=== PATIENT | male | born 1985 | race Caucasian/White ===

== ENCOUNTER 2018-10-23 20:15 | Emergency (ER) | payer MEDICAID ==
[~2018-10-23] VITALS: Ht 172.7 cm; Wt 94.8 kg
--- NOTE | 2018-10-23 20:28 | NUR ---
Patient ambulated with stable gait. AAOX4, speech clear, speaks in complete sentences. No neuro deficits noted. Patient came in with c/o rt sided head pain x 8-10 days. Patient reported taking advil and tylenol intermittently for pain relief. Pain 9/10. Respiratory even and unlabored, no sob, no cough. No cardiovascular distress noted. No GI/ distress. Patient in bed at lowest position, sr upx2, call light within reach. Fall precautions implemented per protocol.
[2018-10-23] MEDS ORDERED: KETOROLAC TROMETHAMINE 30 MG INJ ONE (20:38)
[2018-10-23] MEDS ORDERED: KETOROLAC TROMETHAMINE 30 MG INJ IM ONE (20:45)
[2018-10-23] MEDS ORDERED: TRAMADOL HCL 50 MG TABLET PO ONE (21:30)
[2018-10-23] MEDS ORDERED: TRAMADOL HCL 50 MG TABLET ONE (21:36)
--- NOTE | 2018-10-23 21:43 | NUR ---
Patient discharged to home in stable conditon. Written and verbal after care instructions given. Patient verbalizes understanding of instructions. Patient ambulated with stable gait. Instructed not to drive.
[2018-10-23 21:44] VITALS: BP 140/90
== END 2018-10-23 21:44 | disposition home or self-care (01) ==
LOC: ER 20:15
DX: R51 Headache (principal); F17.290 Nicotine dependence, other tobacco product, uncomplicated; Z88.0 Allergy status to penicillin
CPT/HCPCS: 96372; 99283; 99406; J1885; A4663

== ENCOUNTER 2022-02-18 14:34 | Emergency (ER) | payer MEDICAID ==
[~2022-02-18] VITALS: Ht 172.7 cm; Wt 97.5 kg
[2022-02-18 15:53] LABS: *BILIRUBIN,URIN NEGATIVE (NEGATIVE); *BLOOD, URINE NEGATIVE (NEGATIVE); *CLARITY,URINE CLEAR (CLEAR); *COLOR,URINE YELLOW (YELLOW); *KETONES,URINE NEGATIVE (NEGATIVE); *UROBILINOGEN,URINE 0.2 E.U./dl (NORMAL); LEUKOCYTE ESTERASE ,URINE NEGATIVE (NEGATIVE); NITRITE, URINE NEGATIVE (NEGATIVE); UGLUCOSE NEGATIVE (NEGATIVE)
[2022-02-18] MEDS ORDERED: IBUP-1955 PO ×2 (16:23→16:25)
[2022-02-18] MEDS ORDERED: HYDR-4209 PO ×2 (16:23→16:25)
[2022-02-18] MEDS ORDERED: HYDROCODONE/APAP 5-325MG TABLET PO ONE (16:30)
[2022-02-18] MEDS ORDERED: HYDROCODONE/APAP 5-325MG TABLET ONE (16:31)
--- NOTE | 2022-02-18 16:35 | NUR ---
Gave pt RX and d/c instructions, pt verbalized understanding.
== END 2022-02-18 16:41 | disposition home or self-care (01) ==
LOC: ER 14:34
DX: N50.811 Right testicular pain (principal); U09.9 Post COVID-19 condition, unspecified; N52.9 Male erectile dysfunction, unspecified; Z88.0 Allergy status to penicillin
CPT/HCPCS: 76870; A4663